=== PATIENT | female | born 1985 | race Asian ===

== ENCOUNTER 2020-11-27 14:51 | Emergency (ER) | payer BC, OTHER ==
[~2020-11-27] VITALS: Ht 165.1 cm; Wt 49.9 kg
--- NOTE | 2020-11-27 15:00 | NUR ---
MD at bedside for assessment, patient complaints of 10/10 abdomen pain, patient noted hunched over unable to walk with steady gait due to pain
[2020-11-27] MEDS ORDERED: ONDANSETRON 4 MG/2 ML VIAL IV ONE (15:15)
[2020-11-27] MEDS ORDERED: MORPHINE SULFATE 2 MG/1 ML DISP.SYRIN IV ONE (15:15)
[2020-11-27] MEDS ORDERED: ONDANSETRON 4 MG/2 ML VIAL ONE (15:24)
[2020-11-27] MEDS ORDERED: MORPHINE SULFATE 4 MG/1 ML DISP.SYRIN ONE (15:24)
[2020-11-27 15:27] LABS: HEMATOCRIT 38.7 % (31.2-41.9); MEAN CORPUSCULAR HEMOGLOBIN 33.1 uug (24.7-32.8); MEAN CORPUSCULAR VOLUME 96.1 fL (75.5-95.3); PLATELET COUNT (AUTO) 280 K/uL (179-408)
[2020-11-27 15:30] LABS: CARBON DIOXIDE 24 mmol/L (21-32); CHLORIDE 102 mmol/L (98-107); CREATININE 0.8 mg/dL (0.6-1.3); GLUCOSE 123 mg/dL (74-106); POTASSIUM 3.4 mmol/L (3.5-5.1); UREA NITROGEN, BLOOD 9 mg/dL (7-18)
--- NOTE | 2020-11-27 15:31 | NUR ---
noted at bedside at this time
[2020-11-27 15:36] LABS: ALANINE AMINOTRANSFERASE 18 U/L (14-59); ALKALINE PHOSPHATASE 96 U/L (50-136); ASPARTATE AMINOTRANSFERASE 13 U/L (15-37); BILIRUBIN,DIRECT 0.2 mg/dL (0.0-0.2); LIPASE 109 U/L (73-393); TOTAL PROTEIN, SERUM 8.1 g/dL (6.4-8.2)
[2020-11-27 15:58] LABS: *BILIRUBIN,URIN NEGATIVE (NEGATIVE); *CLARITY,URINE SLIGHTLY CLOUDY (CLEAR); *COLOR,URINE YELLOW (YELLOW); *KETONES,URINE 1+ (NEGATIVE); *UROBILINOGEN,URINE 0.2 E.U./dl (NORMAL); LEUKOCYTE ESTERASE ,URINE NEGATIVE (NEGATIVE); NITRITE, URINE NEGATIVE (NEGATIVE); PH,URINE 7.5 (5.0-8.0); UGLUCOSE NEGATIVE (NEGATIVE)
[2020-11-27 15:59] LABS: *BLOOD, URINE TRACE INTACT (NEGATIVE)
[2020-11-27 16:11] LABS: BACTERIA,URINE NONE SEEN /HPF (NONE SEEN); SQUAMOUS EPITHELIAL CELL,UR MANY /HPF (NONE SEEN); WBC,URINE 0-3 /HPF (0-3)
[2020-11-27] MEDS ORDERED: KETOROLAC TROMETHAMINE 15 MG INJ ONE (16:11)
[2020-11-27] MEDS ORDERED: KETOROLAC TROMETHAMINE 15 MG INJ IVP ONE (16:15)
[2020-11-27] MEDS ORDERED: SWABABLE VALVE TRANSFER SET EA MC ONE (17:08)
[2020-11-27] MEDS ORDERED: IOHEXOL 300MG/ML 100 ML INFUS..BTL ONE (17:09)
[2020-11-27] MEDS ORDERED: IV NORMAL SALINE 250 ML IV ONE (17:09)
--- NOTE | 2020-11-27 18:00 | NUR ---
Patient noted resting in bed, no complaints of abdominal pain at this time, no signs of distress, awaiting CT results
--- NOTE | 2020-11-27 19:08 | NUR ---
Dr Navarro spoke with Dr Danette EAGLE for consult.
[2020-11-27] MEDS ORDERED: HYDROMORPHONE 1 MG/1 ML DISP.SYRIN IV ONE (19:15)
[2020-11-27] MEDS ORDERED: ONDA4TAB5 PO (19:18)
[2020-11-27] MEDS ORDERED: HYDR-4209 PO (19:18)
[2020-11-27] MEDS ORDERED: HYDROMORPHONE 1 MG/1 ML DISP.SYRIN ONE (19:29)
--- NOTE | 2020-11-27 19:42 | NUR ---
IV removed. Catheter intact and site benign. Pressure and 4x4 gauze applied to site. No bleeding noted.
--- NOTE | 2020-11-27 19:48 | NUR ---
Patient discharged to home in stable condition with taking patient home. Written and verbal after care instructions given. Patient verbalizes understanding of instructions. Stressed follow up or return to ER for worsening s/s.
[2020-11-27 19:49] VITALS: BP 110/62
== END 2020-11-27 19:49 | disposition home or self-care (01) ==
LOC: ER 14:51
DX: R10.2 Pelvic and perineal pain (principal); R94.8 Abnormal results of function studies of other organs and systems; Z83.3 Family history of diabetes mellitus; F17.200 Nicotine dependence, unspecified, uncomplicated; R03.0 Elevated blood-pressure reading, without diagnosis of hypertension
CPT/HCPCS: 36415; 74177; 76856; 80048; 80076; 81001; 83690; 84702; 85025; 96374; 96375; 99285; J1170; J1885; J2270; J2405; Q9967; A4663; J7050